=== PATIENT | female | born 1930 | race Caucasian/White ===

== ENCOUNTER 2018-03-25 15:32 | Observation (INO) ==
--- NOTE | 2018-03-25 16:21 | ED ---
HPI General Chief Complaint: Chest Pain Stated Complaint: chest pain Time Seen by Provider: 03/25/18 15:57 Source: patient and family Limitations: no limitations History of Present Illness HPI narrative: Patient is an 87-year-old female, past medical history significant for hypertension, hyperlipidemia, who presents with complaint of being heaviness substernally with intermittent radiation to the left upper extremity and occurred at rest last night. She did have some shortness of breath and felt like he she could not catch her breath. That resolved after several minutes and came back slightly with less intensity at some point this morning and has been intermittent since. No fever, chills, cough, congestion. No abdominal pain. She states that last night she also had a cramp in the left lower extremity that lasted several seconds and resolved on its own. No leg swelling or leg pain otherwise. No immobilization. MD complaint: chest pain STEMI Alert: No Duration: intermittent Onset: during rest Pain location: substernal Severity: moderate Quality: aching and heaviness Pain radiation: LUE Relieving factors: nothing Exacerbating factors: nothing Treatments prior to arrival chest pain: none Related Data Home Medications Medication Instructions Recorded Confirmed levothyroxine 75 mcg PO DAILY 03/25/18 03/25/18 lovastatin 40 mg PO QPM 03/25/18 03/25/18 omeprazole 20 mg PO DAILY 03/25/18 03/25/18 propranolol 60 mg PO BID 03/25/18 03/25/18 temazepam 15 mg PO HS 03/25/18 03/25/18 tramadol 50 mg PO BID 03/25/18 03/25/18 Allergies Allergy/AdvReac Type Severity Reaction Status Date / Time No Known Allergies Allergy Verified 03/25/18 16:25 Review of Systems ROS: all other systems reviewed are negative [facility] Medical History Medical History HBP (high blood pressure) (Acute) High cholesterol (Acute) Hypothyroidism (Acute) Sleep disorder (Acute) Social History Social History Substance History: No History of Abuse Second Hand Smoke Exposure: No Smoking Status: Never smoker Tobacco Type: Cigarettes How Often Do You Have a Drink Containing Alcohol: Never Recent Out of Country Travel within the Last 8 Weeks: No Exam Narrative Exam Narrative: GENERAL: Well-appearing female in no acute distress SKIN: Focused skin assessment warm/dry. No rashes. HEAD: Atraumatic. Normocephalic. EYES: Pupils equal and round. No scleral icterus. No injection or drainage. ENT: No nasal bleeding or discharge. Mucous membranes pink and moist. NECK: Trachea midline. No JVD. CARDIOVASCULAR: Regular rate and rhythm. No murmur appreciated. Intact and equal peripheral pulses. RESPIRATORY: No accessory muscle use. Clear to auscultation. Breath sounds equal bilaterally. GASTROINTESTINAL: Abdomen soft, non-tender, nondistended. Hepatic and splenic margins not palpable. MUSCULOSKELETAL: No obvious deformities. No clubbing. No cyanosis. No edema. No lower extremity pain nor erythema. NEUROLOGICAL: Awake and alert. No obvious cranial nerve deficits. Motor grossly within normal limits. Normal speech. PSYCHIATRIC: Appropriate mood and affect; insight and judgment normal. Course Initial Documented Vital Signs Temperature 97.9 F 03/25/18 15:44 Pulse Rate 56 L 03/25/18 15:44 Respiratory Rate 16 03/25/18 15:44 Blood Pressure 175/82 H 03/25/18 15:44 Pulse Oximetry 96 03/25/18 15:44 Last Documented Vital Signs Temperature 97.9 F 03/26/18 12:00 Pulse Rate 85 03/26/18 12:00 Respiratory Rate 14 03/26/18 12:00 Blood Pressure 145/75 H 03/26/18 12:00 Pulse Oximetry 94 L 03/26/18 12:00 Medical Decision Making MDM Narrative Medical decision making narrative: Patient is an 87-year-old female who presented with complaint of chest pain. Chest x-ray shows reticular opacities but the patient denies cough/fever/chills and states that she has had chronic changes on her x-ray for years, but this is likely acutely unremarkable. Initial labs were also unremarkable. She has been admitted to the chest pain center for serial troponin, EKGs and possible stress test. Medical Screen Exam Complete: Yes Emergency Medical Condition: Yes Differential Diagnosis Differential Diagnosis: Differential diagnosis includes but is not limited to acute coronary syndrome, pneumonia, pneumothorax. Medical Records Medical records reviewed: Yes I reviewed the patient's medical records. Lab Data Lab results reviewed: Yes I reviewed the patient's lab results. Result diagrams: 03/25/18 16:25 03/25/18 16:25 Lab Results 09/14/18 09/14/18 09/14/18 Range/Units 16:25 16:25 18:25 WBC 8.9 (4.0-11.0) th/mm3 RBC 3.79 L (4.00-5.30) mil/mm3 Hgb 13.7 (11.6-15.3) gm/dL Hct 40.7 (35.0-46.0) % MCV 107.2 H (80.0-100.0) fL MCH 36.0 H (27.0-34.0) pg MCHC 33.6 (32.0-36.0) % RDW 13.7 (11.6-17.2) % Plt Count 254 (150-450) th/mm3 MPV 7.7 (7.0-11.0) fL Sodium 135 L (136-145) meq/L Potassium 4.4 (3.5-5.1) meq/L Chloride 99 (98-107) meq/L Carbon Dioxide 27.8 (21.0-32.0) meq/L Anion Gap 8 (5-15) meq/L BUN 11 (7-18) mg/dL Creatinine 0.80 (0.50-1.00) mg/dL Estimated GFR 68 L (>89) mL/min Random Glucose 112 H (74-106) mg/dL Calcium 9.2 (8.5-10.1) mg/dL Total Creatine Kinase 83 (26-192) U/L Troponin I Less than 0.02 L Less than 0.02 L (0.02-0.05) ng/mL 03/25/18 Range/Units 21:15 WBC (4.0-11.0) th/mm3 RBC (4.00-5.30) mil/mm3 Hgb (11.6-15.3) gm/dL Hct (35.0-46.0) % MCV (80.0-100.0) fL MCH (27.0-34.0) pg MCHC (32.0-36.0) % RDW (11.6-17.2) % Plt Count (150-450) th/mm3 MPV (7.0-11.0) fL Sodium (136-145) meq/L Potassium (3.5-5.1) meq/L Chloride (98-107) meq/L Carbon Dioxide (21.0-32.0) meq/L Anion Gap (5-15) meq/L BUN (7-18) mg/dL Creatinine (0.50-1.00) mg/dL Estimated GFR (>89) mL/min Random Glucose (74-106) mg/dL Calcium (8.5-10.1) mg/dL Total Creatine Kinase 79 (26-192) U/L Troponin I Less than 0.02 L (0.02-0.05) ng/mL Imaging Data Attestation: I personally reviewed and interpreted this imaging study as follows : Radiologist's impression: Chest X-Ray 03/25/18 16:14 CONCLUSION: Patchy reticular opacities throughout both lungs without focal consolidation. Without comparison imaging, it cannot be determined whether these are acute or chronic. In the acute setting, atypical infection is a differential consideration. Recommend clinical correlation. Myocardial Perfusion Scan Nuc Med 03/26/18 09:02 CONCLUSION: 1. No reversible defects observed to suggest acute ischemia. Discharge Plan Discharge Disposition Patient Disposition: 01 Discharge Home Discharge Condition Condition: Stable Discharge Order Discharge Orders: Discharge Order (Routine); Ordered 03/26/18 Ordered By: Pollo Tracy Physicians Team ED Provider: Charla Urbina Primary Care Provider: UNKNOWN, Attending Provider: Grant Landry Status ED Status: Left Department Discharge Information Discharge Date/Time: 03/25/18 19:48
--- NOTE | 2018-03-25 16:37 | XR ---
EXAM DATE: 03/25/2018 4:30 PM EDT AGE/SEX: 87 years / Female INDICATIONS: . Shortness of breath and chest pain for 2 days. CLINICAL DATA: This is the patient's initial encounter. Patient reports that signs and symptoms have been present for 1 day and indicates a pain score of 4/10. MEDICAL/SURGICAL HISTORY: Hypertension. None. COMPARISON: No prior exams available for comparison. FINDINGS: PA and lateral views of the chest demonstrate mild elevation of the right hemidiaphragm. Patchy retic ular opacities are seen throughout both lungs. No focal consolidation. No pleural effusion. Partially imaged bilateral shoulder arthroplasties. Leftward curvature of the lumbar spine. A 2 cm rounded opa city projecting over the lower lumbar spine is presumed to be external to the patient, but can be cli nically correlated. CONCLUSION: Patchy reticular opacities throughout both lungs without focal consolidation. Without comparison imag ing, it cannot be determined whether these are acute or chronic. In the acute setting, atypical infec tion is a differential consideration. Recommend clinical correlation. Electronically signed by: Jordyn Hdz MD 03/25/2018 4:36 PM EDT
[2018-03-25 16:51] LABS: Hematocrit 40.7 % (35.0-46.0); Hemoglobin 13.7 gm/dL (11.6-15.3); Mean Corpuscular HGB Conc 33.6 % (32.0-36.0); Mean Corpuscular Volume 107.2 fL (80.0-100.0); Mean Platelet Volume 7.7 fL (7.0-11.0); Platelet Count 254 th/mm3 (150-450); Red Blood Count 3.79 mil/mm3 (4.00-5.30); Red Cell Distribution Width 13.7 % (11.6-17.2); White Blood Count 8.9 th/mm3 (4.0-11.0)
[2018-03-25 17:18] LABS: Anion Gap 8 meq/L (5-15); Blood Urea Nitrogen 11 mg/dL (7-18); Calcium 9.2 mg/dL (8.5-10.1); Carbon Dioxide 27.8 meq/L (21.0-32.0); Chloride 99 meq/L (98-107); Glomerular Filtration Rate 68 mL/min (>89); Glucose,Random 112 mg/dL (74-106); Potassium 4.4 meq/L (3.5-5.1); Sodium 135 meq/L (136-145)
[2018-03-25 20:00] LABS: Creatine Kinase 83 U/L (26-192)
[2018-03-25 22:07] LABS: Creatine Kinase 79 U/L (26-192)
[2018-03-26] MEDS ORDERED: Temazepam 15 MG Capsule PO ONE (00:15)
[2018-03-26] MEDS ORDERED: Levothyroxine 75 MCG Tablet PO SCH (06:00)
[2018-03-26] MEDS ORDERED: Propranolol 40 MG Tablet PO SCH (09:00)
[2018-03-26] MEDS ORDERED: Pantoprazole Sodium 20 MG DR Tablet PO SCH (09:00)
--- NOTE | 2018-03-26 09:59 | P.HPCA ---
History of Present Illness Primary Care Physician: UNKNOWN Chief Complaint: Chest pain History of Present Illness: This is an 87-year-old female that presents to ED via private vehicle complaining of waking up in the middle night with twitching and cramping in her legs. She began to massage them and even used a sizing vibrator to her legs. Eventually the symptoms resolved about an hour later. But the middle that she developed a heaviness in the center of her chest the last several minutes. Was moderate in intensity. Denies associated shortness of breath, nausea, or diaphoresis. Denies prior history of heart disease. States she had a stress test about 6 or 7 years ago and that was okay. Not followed by academic assistant. Chest x-ray in the emergency department read by radiologist as patchy opacities throughout the lungs questionable atypical infection if no prior exams for comparison. Patient states that she has been told that she has scarring of her lungs and has seen a dot net developer. States she was told she has pulmonary fibrosis and that her primary care doctor pretty much to use a follow this. Denies cough. Denies fevers. Currently denies chest discomfort. Non-smoker. Lives with her of 70 years. Denies coronary artery disease in her family states her father of a CVA at age 67. - Diagnosis (1) Chest pain (2) Hypertension (3) Hyperlipidemia (4) GERD (gastroesophageal reflux disease) Review of Systems General: Patient denies fevers, chills, and recent travel. HEENT: Patient denies headache, sore throat, difficulty swallowing. Cardiovascular: Has the chest discomfort as mentioned above. Denies sensation of heart beating rapidly or irregularly. No syncope. Denies diaphoresis. Respiratory: Denies shortness of breath or inspirational chest discomfort. Denies coughing wheezing or hemoptysis. GI: Patient denies nausea, vomiting, diarrhea, abdominal pain, bloody stools. Musculoskeletal: Patient denies joint pain or edema. Denies calf pain or edema. Neurovascular: Patient denies numbness, tingling, weakness in extremities. Denies headache. Endocrine: Denies polyuria and polydipsia. Hematologic: Denies easy bruising. Skin: Denies rash or itching. PMFSH - History History Provided By: Patient - Medical History Medical History: Medical History (Last Updated 03/25/18 @ 16:30 by Blanca Cordon) HBP (high blood pressure) High cholesterol Hypothyroidism Sleep disorder - Tobacco History Second Hand Smoke Exposure: No Tobacco Use In Past 30 Days: No Smoking Status: Never smoker Tobacco Type: Cigarettes - Alcohol History How Often Do You Have a Drink Containing Alcohol: Never - Substance Use History Substance History: No History of Abuse - Travel History Recent Travel Out of the Country Within the Last 8 Weeks: No - Immunization History Tetanus Immunization: >5 Years Hx Influenza Vaccine This Season: No Medications and Allergies Active Medications: Active Medications Levothyroxine Sodium (Synthroid) 75 mcg PO DAILY@0600 [facility] Last Admin: 03/26/18 06:13 Dose: 75 mcg Miscellaneous (Pill Splitter) 1 each OTHER UNSCH PRN PRN Reason: SEE LABEL COMMENT Pantoprazole Sodium (Protonix) [address] [facility] Last Admin: 03/26/18 09:04 Dose: 20 mg Pravastatin Sodium (Pravachol) [address] [facility] Propranolol HCl (Inderal) [address] [facility] Sodium Chloride (Ns Flush) 2 ml IV.FLUSH UNSCH PRN PRN Reason: FLUSH AFTER USING IV ACCESS Last Admin: 03/25/18 16:24 Dose: 2 ml Sodium Chloride (Ns Flush) [address] [facility] Last Admin: 03/26/18 09:06 Dose: 2 ml Sodium Chloride (Ns Flush) 2 ml IV.FLUSH PRN PRN PRN Reason: FLUSH AFTER USING IV ACCESS Temazepam (Restoril) [address] [facility] Tramadol HCl (Ultram) [address] [facility] Last Admin: 03/26/18 09:04 Dose: 50 mg Allergies Allergy/AdvReac Type Severity Reaction Status Date / Time No Known Allergies Allergy Verified 03/25/18 16:25 Home Medications Medication Instructions Recorded Confirmed Type levothyroxine 75 mcg PO DAILY 03/25/18 03/25/18 History lovastatin 40 mg PO QPM 03/25/18 03/25/18 History omeprazole 20 mg PO DAILY 03/25/18 03/25/18 History propranolol 60 mg PO BID 03/25/18 03/25/18 History temazepam 15 mg PO HS 03/25/18 03/25/18 History tramadol 50 mg PO BID 03/25/18 03/25/18 History Exam Vital signs: Vital Signs 03/25/18 15:44 03/25/18 16:14 03/25/18 16:18 Temperature 97.9 F 97.8 F Pulse Rate 56 L 58 L Respiratory Rate 16 16 Blood Pressure 175/82 H 148/81 H Pulse Oximetry 96 99 96 03/25/18 16:51 03/25/18 16:55 03/25/18 18:30 Temperature 97.7 F 97 F L Pulse Rate 48 L 54 L Respiratory Rate 16 16 16 Blood Pressure 138/76 140/76 Pulse Oximetry 99 99 03/25/18 19:30 03/25/18 19:44 03/26/18 00:15 Temperature 96.4 F L 98.1 F Pulse Rate 55 L 52 L Respiratory Rate 16 16 Blood Pressure 131/63 131/67 Pulse Oximetry 98 100 97 03/26/18 04:23 03/26/18 07:16 Temperature 97.9 F 98.7 F Pulse Rate 56 L 57 L Respiratory Rate 18 16 Blood Pressure 120/58 L 106/61 Pulse Oximetry 94 L 95 Intake & Output 03/25/18 03/26/18 03/26/18 18:59 06:59 18:59 Weight 60.781 kg 60.78 kg Other: Weight On Admission 60.781 kg Narrative: GENERAL: This is a well-nourished, well-developed patient, in no apparent distress. Patient speaks in clear complete sentences. Patient is pleasant. HEENT: Head is atraumatic and normocephalic. Neck is supple without lymphadenopathy and trachea is midline. No JVD or carotid bruits. CARDIOVASCULAR: Regular rate and rhythm without murmurs, gallops, or rubs. RESPIRATORY: Clear to auscultation. Breath sounds equal bilaterally. No wheezes , rales, or rhonchi. Chest wall is nontender. No use of accessory muscles. GASTROINTESTINAL: Abdomen is nontender, nondistended. Abdomen soft. No obvious pulsatile mass or bruit. No CVA tenderness. Strong femoral pulses bilaterally. Normal bowel sounds in all quadrants. MUSCULOSKELETAL: Patient is moving upper and lower extremities freely. No calf tenderness or edema, no Homans sign. Strong pulses in upper and lower extremities. NEUROLOGICAL: Patient is alert and oriented. Cranial nerves 2-12 are grossly intact. No focal deficits and speech is clear. SKIN: No rash and turgor is normal. Results 03/25/18 16:25 03/25/18 16:25 Cardiac Enzymes 03/25/18 03/25/18 03/25/18 Range/Units 16:25 18:25 21:15 Troponin I Less than 0.02 L Less than 0.02 L Less than 0.02 L (0.02-0.05) ng/mL CBC 03/25/18 Range/Units 16:25 WBC 8.9 (4.0-11.0) th/mm3 RBC 3.79 L (4.00-5.30) mil/mm3 Hgb 13.7 (11.6-15.3) gm/dL Hct 40.7 (35.0-46.0) % Plt Count 254 (150-450) th/mm3 Comprehensive Metabolic Panel 03/25/18 Range/Units 16:25 Sodium 135 L (136-145) meq/L Potassium 4.4 (3.5-5.1) meq/L Chloride 99 (98-107) meq/L Carbon Dioxide 27.8 (21.0-32.0) meq/L BUN 11 (7-18) mg/dL Creatinine 0.80 (0.50-1.00) mg/dL Calcium 9.2 (8.5-10.1) mg/dL Intake and Output 03/25/18 03/26/18 03/26/18 22:59 06:59 14:59 Other: Weight 60.78 kg Weight On Admission 60.781 kg EKG interpretations - EKG EKG shows: bradycardia (EKGs are sinus bradycardia with borderline first-degree AV block. No significant ST segment depressions or elevations.) Caprini VTE Risk Assessment Caprini VTE Risk Assessment: Moderate/High Risk (score >= 2) Caprini Risk Assessment Model: Point Value = 1 Point Value = 2 Point Value = 3 Point Value = 5 Age 41-60 Minor surgery BMI > 25 kg/m2 Swollen legs Varicose veins or History of unexplained or recurrent spontaneous Oral contraceptives or hormone replacement Sepsis (< 1 month) Serious lung disease, including pneumonia (< 1 month) Abnormal pulmonary function Acute myocardial infarction Congestive heart failure (< 1 month) History of inflammatory bowel disease Medical patient at bed rest Age 61-74 Arthroscopic surgery Major open surgery (> 45 min) Laparoscopic surgery (> 45 min) Malignancy Confined to bed (> 72 hours) Immobilizing plaster cast Central venous access Age >= 75 History of VTE Family history of VTE Factor V Leiden Prothrombin [id number] Lupus anticoagulant Anticardiolipin antibodies Elevated serum homocysteine Heparin-induced thrombocytopenia Other congenital or acquired thrombophilia Stroke (< 1 month) Elective arthroplasty Hip, pelvis, or leg fracture Acute spinal cord injury (< 1 month) Prophylaxis Regimen: Total Risk Factor Score Risk Level Prophylaxis Regimen 0-1 Low Early ambulation 2 Moderate Order ONE of the following: *Sequential Compression Device (SCD) *Heparin 5000 units SQ BID 3-4 Higher Order ONE of the following medications: *Heparin 5000 units SQ TID *Enoxaparin/Lovenox 40 mg SQ daily (WT < 150 kg, CrCl > 30 mL/min) *Enoxaparin/Lovenox 30 mg SQ daily (WT < 150 kg, CrCl > 10-29 mL/min) *Enoxaparin/Lovenox 30 mg SQ BID (WT < 150 kg, CrCl > 30 mL/min) AND/OR *Sequential Compression Device (SCD) 5 or more Highest Order ONE of the following medications: *Heparin 5000 units SQ TID (Preferred with Epidurals) *Enoxaparin/Lovenox 40 mg SQ daily (WT < 150 kg, CrCl > 30 mL/min) *Enoxaparin/Lovenox 30 mg SQ daily (WT < 150 kg, CrCl > 10-29 mL/min) *Enoxaparin/Lovenox 30 mg SQ BID (WT < 150 kg, CrCl > 30 mL/min) AND *Sequential Compression Device (SCD) Assessment and Plan - Assessment (1) Chest pain Code(s): R07.9 - Chest pain, unspecified Status: Acute (2) Hypertension Code(s): I10 - Essential (primary) hypertension Status: Acute (3) Hyperlipidemia Code(s): E78.5 - Hyperlipidemia, unspecified Status: Acute (4) GERD (gastroesophageal reflux disease) Code(s): K21.9 - Gastro-esophageal reflux disease without esophagitis Status: Acute - Plan * Chest pain: Patient has had serial cardiac enzymes and EKGs for ruling out purposes. She will be seen by Dr. Tracy cardiology in the chest pain center. She will undergo a Lexiscan be discharged home if her stress test is nonischemic with instructions to follow-up with PCP. Return to ED for interval issues. * Hypertension: Continue medication. * Hyperlipidemia: Continue medication. * GERD: Continue medication. Patient is stable at this time. She is agreeable to this plan. H&P: Quality - VTE Deep Vein Thrombosis/Pulmonary Embolism Present on Admission: No
--- NOTE | 2018-03-26 10:30 | ECG ---
Date Performed: 03/25/2018 Time Performed: 21:27:39 PTAGE: 87 years EKG: SINUS BRADYCARDIA WITH SINUS ARRHYTHMIA WITH FIRST DEGREE AV BLOCK Poor R wave progression ABNORMAL ECG PREVIOUS TRACING : 03/25/2018 18.28 Since previous tracing, no significant change noted DOCTOR: Pollo Tracy Interpretating Date/Time 03/26/2018 10:28:58
[2018-03-26] MEDS ORDERED: Regadenoson Inj 0.4 MG/5 ML Syringe IV.PUSH ONE (10:54)
[2018-03-26 12:08] VITALS: BP 145/75; PULSE 85; RESP 14; TEMP 97.9; O2SAT 94
--- NOTE | 2018-03-26 12:29 | NM ---
EXAM DATE: 03/26/2018 12:16 PM EDT AGE/SEX: 87 years / Female INDICATIONS:Angina. . Substernal chest pain radiating to the left arm for one day with dyspnea. CLINICAL DATA: This is the patient's initial encounter. Patient reports that signs and symptoms have been present for 1 day and indicates a pain score of 5/10. MEDICAL/SURGICAL HISTORY: Hypertension. None. COMPARISON: No prior exams available for comparison. DOSE: 8.5 mCi Tc 99m Myoview at rest 26.2 mCi [id number] at stress 0.4 mg Lexiscan STRESS SYMPTOMS: None. EJECTION FRACTION: >70 % TECHNIQUE: The patient underwent pharmacologic stress with infusion of prescribed dose. Continuous ECG tracing was monitored during stress. Gated SPECT imaging was performed after stress and conventi onal SPECT imaging was performed at rest. The examination was performed on a SPECT/CT scanner, both attenuation and non-corrected datasets were reviewed. FINDINGS: Distribution: The maximum perfused segment at stress is in the inferior wall. Perfusion Study: There is 10% redistribution involving the anterior wall. No significant areas of r edistribution observed between the stress and rest sequences. No fixed defects observed.. Gated Study: There are intact wall motion and wall thickening without hypokinetic or dyskinetic segm ents. The ejection fraction is calculated at >70%. RISK CATEGORY: Low (<1% Annual Motality Rate) CONCLUSION: 1. No reversible defects observed to suggest acute ischemia. Electronically signed by: Kd Villegas MD 03/26/2018 12:27 PM EDT
[2018-03-26] MEDS ORDERED: Temazepam 15 MG Capsule PO SCH (21:00)
--- NOTE | 2018-03-26 22:12 | ECG ---
Date Performed: 03/25/2018 Time Performed: 18:28:26 PTAGE: 87 years EKG: SINUS BRADYCARDIA WITH FIRST DEGREE AV BLOCK POSSIBLE ANTERIOR MYOCARDIAL INFARCTION ABNORM AL ECG PREVIOUS TRACING : 03/25/2018 16.39 DOCTOR: Riccardo Santillan Interpretating Date/Time 03/26/2018 22:08:52
--- NOTE | 2018-03-26 22:14 | ECG ---
Date Performed: 03/25/2018 Time Performed: 16:39:32 PTAGE: 87 years EKG: SINUS BRADYCARDIA WITH FIRST DEGREE AV BLOCK POSSIBLE ANTERIOR MYOCARDIAL INFARCTION ABNORM AL ECG NO PREVIOUS TRACING DOCTOR: Riccardo Santillan Interpretating Date/Time 03/26/2018 22:10:50
--- NOTE | 2018-03-27 14:12 | TR ---
Date Performed: 03/26/2018 Time Performed: 10:54:07 DOCTOR: Pollo Tracy DRUG LIST: CLINICAL HISTORY: REASON FOR TEST: Angina REASON FOR ENDING: OBSERVATION: CONCLUSION: COMMENTS: Lexiscan stress test was performed under standard four minute protocol. Radionuclide was injected one minute prior to ending the test. No electrocardiographic abormalities were present t o suggest ischemia. Nuclear imaging and interpretation are pending.
== END 2018-03-26 14:45 | disposition home or self-care (01) ==
LOC: NEPE 15:32 → NEDA 15:32 → NEPFCDU 19:23
PROVIDERS: ADMIT Internal Medicine Interventional Cardiology; ATTEND Internal Medicine Interventional Cardiology